=== PATIENT | male | born 1965 | race Two or more races ===

== ENCOUNTER 2021-08-14 17:42 | Emergency (ER) | payer MEDICAID ==
[~2021-08-14] VITALS: Ht 172.7 cm; Wt 68.2 kg
--- NOTE | 2021-08-14 18:26 | NUR ---
.The patient to bed 25 via EMS after he was placed on a 5150 hold [facility] for DTS and GD. The patient was seen by [facility] and placed on a 5150 hold. Covid test was positive. BARBARA Belcher and rn charge made aware.
[2021-08-14 18:34] LABS: BASOPHILS % (AUTO) 0.4 % (0-1); EOSINOPHILS # (AUTO) 0.1 X10'3 (0-0.9); EOSINOPHILS % (AUTO) 1.2 % (0-6); HEMATOCRIT 40.9 % (42.0-52.0); HEMOGLOBIN 14.1 g/dl (14.0-17.9); LYMPHOCYTES # (AUTO) 1.8 X10'3 (1.1-4.8); MEAN CORPUSCULAR HEMOGLOBIN 27.8 PG (27.0-31.0); MEAN CORPUSCULAR HGB CONC 34.3 g/dL (33.0-36.5); MEAN CORPUSCULAR VOLUME 80.8 FL (78-98); MEAN PLATELET VOLUME 9.8 FL (7.4-10.4); MONOCYTES # (AUTO) 0.6 X10'3 (0-0.9); MONOCYTES % (AUTO) 10.1 % (2-12); NEUTROPHILS # (AUTO) 3.8 X10'3 (1.8-7.7); NEUTROPHILS % (AUTO) 60.3 % (42-75); PLATELET COUNT 155 X10'3 (140-440); RED BLOOD COUNT 5.06 X10'6 (4.70-6.10); WHITE BLOOD COUNT 6.3 X10'3 (4.5-11.0)
[2021-08-14 18:45] LABS: ALANINE AMINOTRANSFERASE 21 U/L (12-78); ALBUMIN 3.4 G/DL (3.4-5.0); ALBUMIN/GLOBULIN RATIO 0.9 (1.1-1.5); ALKALINE PHOSPHATASE 72 IU/L (46-116); ANION GAP 10 (8-16); ASPARTATE AMINO TRANSFERASE 19 U/L (10-37); BILIRUBIN,TOTAL 0.5 MG/DL (0.1-1.0); BLOOD UREA NITROGEN 27 MG/DL (7-18); BUN/CREATININE RATIO 23.5 (5.4-32.0); CALCIUM 8.5 MG/DL (8.5-10.1); CHLORIDE 109 MMOL/L (99-107); CREATININE 1.15 MG/DL (0.60-1.10); GLUCOSE 103 MG/DL (70-104); POTASSIUM 3.6 MMOL/L (3.5-5.1); SODIUM 143 MMOL/L (135-145); TOTAL CARBON DIOXIDE 24.3 MMOL/L (24-32); TOTAL PROTEIN 7.3 G/DL (6.4-8.2); eGFR 66 ML/MIN
[2021-08-14 18:54] LABS: ETHANOL < 0.010 GM/DL (0.0-0.010)
[2021-08-14 18:55] LABS: CLARITY,URINE CLEAR (Clear); COLOR,URINE YELLOW (Yellow); GLUCOSE, URINE NEGATIVE (Neg); KETONES,URINE NEGATIVE (Neg); LEUKOCYTE ESTERASE ,URINE NEGATIVE (Neg); NITRITES, URINE NEGATIVE (Neg); OCCULT BLOOD,URINE TRACE-INTACT (Neg); PH,URINE 5.5 (4.8-8.0); PROTEIN,URINE TRACE mg/dl (Neg); UROBILINOGEN,URINE 0.2 E.U/dL (0.2-1.0)
[2021-08-14 19:01] LABS: URINE AMPHETAMINE SCREEN NEGATIVE (Neg); URINE BARBITUATE SCREEN NEGATIVE (Neg); URINE BENZODIAZEPINES SCREEN NEGATIVE (Neg); URINE CANNABINOID SCREEN NEGATIVE (Neg); URINE COCAINE SCREEN NEGATIVE (Neg); URINE METHADONE SCREEN NEGATIVE (Neg); URINE OPIATE SCREEN NEGATIVE (Neg); URINE PHENCYCLIDINE SCREEN NEGATIVE (Neg)
[2021-08-14 19:02] LABS: UA COLLECTION TYPE CLN CATCH MIDSTREAM
[2021-08-14 19:05] LABS: BACTERIA,URINE FEW /HPF (Neg); MUCUS STRANDS FEW /LPF (Neg); RBC,URINE 0-2 /HPF (0-2); SQUAMOUS EPITHELIAL CELL,UR FEW /LPF (FEW); WBC,URINE 0-4 /HPF (0-4)
--- NOTE | 2021-08-14 20:33 | NUR ---
Success A new connect request was successfully created for: ANEUDY PALACIO : 1965 ConnectID: [id number] REASON: Other Emergency ACUITY: Acuity Level 2 SUBMITTED: 08/14/2021 20:33 PDT
--- NOTE | 2021-08-14 20:52 | NUR ---
Neuro consult in process per MD order
--- NOTE | 2021-08-14 21:26 | NUR ---
never showed on tele consult. Tech will call again.
--- NOTE | 2021-08-14 21:31 | NUR ---
Consult company said they are waiting for a doctor to sign up for patient but that he is "in the queue"
--- NOTE | 2021-08-14 21:47 | NUR ---
Neuro consult concluded. [employer] services utilized
[2021-08-15] MEDS ORDERED: NO HOME MEDS (17:28)
--- NOTE | 2021-08-15 17:35 | NUR ---
5150 states the pt has 3 meds with him but the meds are with the pt belongs nor in the pharm. will attempt to call family to get med list since pt doesnt know what meds he takes
--- NOTE | 2021-08-15 17:42 | NUR ---
called family to ask about home meds. no answer
--- NOTE | 2021-08-16 00:30 | NUR ---
ASSUMED CARE OF PT. PT HAS NO COMPLAINTS AT THIS TIME AND IS ATTEMPTING TO SLEEP AGAIN AFTER HE WAS MOVED ROOMS.
--- NOTE | 2021-08-16 01:30 | NUR ---
REQUESTED TO HAVE SOMETHING TO EAT. PROVIDED WITH A SNACK AND JUICE.
--- NOTE | 2021-08-16 02:30 | NUR ---
SLEEPING ON HIS SIDE. EQUAL RISE AND FALL OF CHEST.
--- NOTE | 2021-08-16 03:30 | NUR ---
Mor mendez in ED - 08/16/21 at 0507 by [email or web address] PT SLEEPING. EQUAL RISE AND FALL OF CHEST.
--- NOTE | 2021-08-16 03:30 | NUR ---
PT SLEEPING COMFORTABLY. EQUAL RISE AND FALL OF CHEST.
--- NOTE | 2021-08-16 04:30 | NUR ---
PT SLEEPING COMFORTABLY. EQUAL RISE AND FALL OF CHEST.
--- NOTE | 2021-08-16 05:55 | NUR ---
SLEEPING ON BACK. EQUAL RISE AND FALL OF CHEST.
--- NOTE | 2021-08-16 06:30 | NUR ---
PT SLEEPING IN RGT LATERAL POSITION ,WILL CONT TO MONITOR.
--- NOTE | 2021-08-16 07:18 | NUR ---
STILL SLEEPING ,RR WNL ,WILL CONT TO MONITOR.
--- NOTE | 2021-08-16 08:30 | NUR ---
BREAKFAST FEED TO THE PT .COMPLETED 100% FOOD ON THE TRAY.WILL CONT TO MONITOR.
--- NOTE | 2021-08-16 09:34 | NUR ---
PT RESTING IN BED .NO DISTRESS NOTED ,WILL CONT TO MONITOR.
--- NOTE | 2021-08-16 10:07 | NUR ---
Pt resting in bed with eyes closed. No signs or symptoms of distress. Equal rise and fall of chest. Will continue to monitor.
--- NOTE | 2021-08-16 11:12 | NUR ---
Pt resting with eyes closed. Equal rise and fall of chest.
--- NOTE | 2021-08-16 12:20 | NUR ---
Pt is resting in bed with eyes closed. No signs or symptoms of distress noted. Equal rise and fall of chest noted. Will continue to monitor.
--- NOTE | 2021-08-16 13:12 | NUR ---
Pt in bed resting with eyes open. Pt states he has no needs at this time. No signs or symptoms of distress noted. Will continue to monitor.
--- NOTE | 2021-08-16 15:03 | NUR ---
Pt's sister Ivonne called and requested to speak with pt. Phone placed in pt's room and pt monitored from door until phone call finished. Pt is in bed resting. Pt states he has no needs at this time. No signs or symptoms of distress noted. Will continue to monitor.
--- NOTE | 2021-08-16 20:00 | NUR ---
Patient recieved at 1940 laying in bed resting.
--- NOTE | 2021-08-16 20:30 | NUR ---
Patient found laying in bed sleeping. Patient awakes to ask for more blankets and to use urinal. Patient denies needing assistance and returns to sleep.
--- NOTE | 2021-08-16 22:30 | NUR ---
Patient is resting quietly in room. No needs at this time
--- NOTE | 2021-08-17 01:00 | NUR ---
ASSUMED CARE OF PT. PT SLEEPING ON HIS SIDE. EQUAL RISE AND FALL OF CHEST.
--- NOTE | 2021-08-17 02:00 | NUR ---
PT SLEEPING COMFORTABLY. EQUAL RISE AND FALL OF CHEST.
--- NOTE | 2021-08-17 03:00 | NUR ---
PT SLEEPING ON HIS SIDE. EQUAL RISE AND FALL OF CHEST.
--- NOTE | 2021-08-17 04:00 | NUR ---
PT SLEEPING COMFORTABLY. EQUAL RISE AND FALL OF CHEST
--- NOTE | 2021-08-17 05:00 | NUR ---
PT SLEEPING ON HIS SIDE. EQUAL RISE AND FALL OF CHEST.
--- NOTE | 2021-08-17 06:07 | NUR ---
PT HAD VITALS TAKEN. PT RESTING ON HIS SIDE.
--- NOTE | 2021-08-17 13:12 | NUR ---
PT REQUESTING A BEDSIDE CAMODE AND WAS GIVEN ONE FOR TOILETING
--- NOTE | 2021-08-17 18:49 | NUR ---
ASSUMED CARE OF PT. PT LYING IN BED WATCHING STAFF WALKING THE HALLS. HE DENIES ANY NEEDS AT THIS TIME.
--- NOTE | 2021-08-17 20:00 | NUR ---
PT USED BEDSIDE COMMODE. HE ALSO REQUESTED TO HAVE THE HEAD OF HIS BED LOWERED DOWN. HE ALREADY ATE DINNER.
--- NOTE | 2021-08-17 20:28 | NUR ---
Mor mendez in EDM - 08/17/21 at 2028 by [email or web address] PT PROVIDED URINE SAMPLE. COVID SWAB RESULTS ARE IN. REPEAT ELECTROLYTE LABS HAVE BEEN DRAWN.
--- NOTE | 2021-08-17 21:00 | NUR ---
PT LYING ON HIS SIDE. WATCHING STAFF WALK THE [place].
--- NOTE | 2021-08-17 22:00 | NUR ---
PT ATTEMPTING TO SLEEP. TURNED LIGHTS OFF FOR PT'S COMFORT.
--- NOTE | 2021-08-17 23:00 | NUR ---
PT SLEEPING ON HIS SIDE. EQUAL RISE AND FALL OF CHEST.
--- NOTE | 2021-08-18 | NUR ---
PT SLEEPING ON HIS BACK. EQUAL RISE AND FALL OF CHEST.
--- NOTE | 2021-08-18 01:00 | NUR ---
PT AWAKE. HE DENIES ANY NEEDS.
--- NOTE | 2021-08-18 02:00 | NUR ---
PT SLEEPING ON HIS SIDE. EQUAL RISE AND FALL OF CHEST.
--- NOTE | 2021-08-18 03:00 | NUR ---
PT SLEEPING ON HIS SIDE. EQUAL RISE AND FALL OF CHEST.
--- NOTE | 2021-08-18 04:00 | NUR ---
PT SLEEPING ON HIS BACK. EQUAL RISE AND FALL OF CHEST.
--- NOTE | 2021-08-18 05:00 | NUR ---
PT SLEEPING ON HIS SIDE. EQUAL RISE AND FALL OF CHEST.
--- NOTE | 2021-08-18 06:12 | NUR ---
PT SLEEPING ON HIS SIDE. VITALS TAKEN/.
--- NOTE | 2021-08-18 11:45 | NUR ---
[facility] called and requested covid test to determine if patient has turned negative. informatics specialist swab obtained and sent to lab.
--- NOTE | 2021-08-18 12:45 | NUR ---
TODAY'S COVID TEST CAME BACK POSITIVE. [facility] WILL BE NOTIFIED.
[2021-08-20 06:05] VITALS: BP 135/84
--- NOTE | 2021-08-20 08:30 | NUR ---
TOLERATED REGULAR DIET WELL AND RETAINED. RESTING ON [place].
--- NOTE | 2021-08-20 14:11 | NUR ---
PATIENT RE-EVALUATED PER [facility] AND PATIENT WILL BE RELEASED TO FAMILY THIS EVENING. RESTING IN BED. TOLERATED LUNCH WELL AND RETAINED.
== END 2021-08-20 18:15 | disposition home or self-care (01) ==
LOC: ER 17:44
DX: U07.1 COVID-19 (principal); F91.9 Conduct disorder, unspecified; R41.82 Altered mental status, unspecified; Z86.73 Personal history of transient ischemic attack (TIA), and cerebral infarction without residual deficits
CPT/HCPCS: 36415; 70450; 71045; 80053; 80305; 80320; 81001; 84443; 85025; 87811; 99285

== ENCOUNTER 2022-01-23 12:49 | Day surgery (SDC) | payer MEDICAID ==
[~2022-01-23] VITALS: Ht 175.3 cm; Wt 59.1 kg
[~2022-01-23 12:49] MED LIST: NO HOME MEDS
[2022-01-23 13:05] VITALS: BP 159/87
[2022-01-23] MEDS ORDERED: MIDAZolam 1 MG/ML 5ML VIAL ONE (13:14)
[2022-01-23] MEDS ORDERED: FENTANYL CITRATE/PF 50 MCG/1 ML VIAL ONE (13:14)
[2022-01-23] MEDS ORDERED: AMLO2.5T2 PO (13:54)
[2022-01-23] MEDS ORDERED: RISP2TAB85 PO (13:55)
[2022-01-23] MEDS ORDERED: DOCU-148 PO (13:56)
[2022-01-23] MEDS ORDERED: LISI40TA13 PO (13:57)
[2022-01-23 15:19] VITALS: BP 130/83
[2022-01-23 15:29] VITALS: BP 128/85
[2022-01-23 15:39] VITALS: BP 128/76
[2022-01-23 15:49] VITALS: BP 139/84
== END 2022-01-23 15:50 | disposition home or self-care (01) ==
LOC: GI LAB 12:49
PROVIDERS: ATTEND Internal Medicine Gastroenterology
DX: K62.5 Hemorrhage of anus and rectum (principal); D12.0 Benign neoplasm of cecum; D12.5 Benign neoplasm of sigmoid colon
CPT/HCPCS: 45385; 99152; 99153; J2250; J3010; J7030; Z7512; A4620; C1889

== ENCOUNTER 2022-08-31 12:19 | Emergency (ER) | payer MEDICAID ==
[~2022-08-31] VITALS: Ht 175.3 cm; Wt 59.0 kg
[~2022-08-31 12:19] MED LIST changes: +AMLO2.5T2 PO; +DOCU-148 PO; +LISI40TA13 PO; -NO HOME MEDS; +RISP2TAB85 PO
[2022-08-31 12:57] VITALS: BP 100/54
[2022-08-31 15:27] LABS: BASOPHILS % (AUTO) 0.4 % (0-1); EOSINOPHILS # (AUTO) 0.1 X10'3 (0-0.9); EOSINOPHILS % (AUTO) 0.8 % (0-6); HEMATOCRIT 37.1 % (42.0-52.0); HEMOGLOBIN 12.7 g/dl (14.0-17.9); LYMPHOCYTES # (AUTO) 2.2 X10'3 (1.1-4.8); LYMPHOCYTES % (AUTO) 24.1 % (21-51); MEAN CORPUSCULAR HEMOGLOBIN 28.5 PG (27.0-31.0); MEAN CORPUSCULAR HGB CONC 34.1 g/dL (33.0-36.5); MEAN CORPUSCULAR VOLUME 83.4 FL (78-98); MEAN PLATELET VOLUME 8.7 FL (7.4-10.4); MONOCYTES # (AUTO) 0.6 X10'3 (0-0.9); NEUTROPHILS # (AUTO) 6.1 X10'3 (1.8-7.7); NEUTROPHILS % (AUTO) 67.7 % (42-75); PLATELET COUNT 202 X10'3 (140-440); RED BLOOD COUNT 4.45 X10'6 (4.70-6.10)
[2022-08-31 15:38] LABS: ALANINE AMINOTRANSFERASE 22 U/L (12-78); ALBUMIN/GLOBULIN RATIO 0.8 (1.1-1.5); ALKALINE PHOSPHATASE 69 IU/L (46-116); ANION GAP 9 (8-16); ASPARTATE AMINO TRANSFERASE 23 U/L (10-37); BILIRUBIN,TOTAL 0.4 MG/DL (0.1-1.0); BLOOD UREA NITROGEN 16 MG/DL (7-18); BUN/CREATININE RATIO 17.8 (10.0-20.0); CALCIUM 8.9 MG/DL (8.5-10.1); CHLORIDE 107 MMOL/L (99-107); GLUCOSE 99 MG/DL (70-104); POTASSIUM 3.9 MMOL/L (3.5-5.1); SODIUM 143 MMOL/L (135-145); TOTAL CARBON DIOXIDE 26.6 MMOL/L (24-32); TOTAL PROTEIN 6.8 G/DL (6.4-8.2); eGFR 87 ML/MIN
[2022-08-31 15:53] LABS: CLARITY,URINE SLIGHTLY CLOUDY (Clear); COLOR,URINE YELLOW (Yellow); GLUCOSE, URINE NEGATIVE (Neg); KETONES,URINE 15 mg/dl (Neg); LEUKOCYTE ESTERASE ,URINE NEGATIVE (Neg); NITRITES, URINE NEGATIVE (Neg); OCCULT BLOOD,URINE NEGATIVE (Neg); PROTEIN,URINE 30 mg/dl (Neg)
[2022-08-31 15:54] LABS: UA COLLECTION TYPE CLN CATCH MIDSTREAM
--- NOTE | 2022-08-31 15:56 | NUR ---
akanksha chaperoned brooks with procedure
[2022-08-31 16:01] LABS: MUCUS STRANDS MANY /LPF (Neg); SQUAMOUS EPITHELIAL CELL,UR FEW /LPF (FEW)
[2022-08-31 16:03] LABS: BACTERIA,URINE FEW /HPF (Neg); CAL OXALATE CRYSTALS 1+ /HPF (NEGATIVE); RBC,URINE 0-2 /HPF (0-2); WBC,URINE 0-4 /HPF (0-4)
[2022-08-31] MEDS ORDERED: PSYL575P22 PO (16:08)
== END 2022-08-31 17:00 | disposition home or self-care (01) ==
LOC: ER 12:20
DX: K59.00 Constipation, unspecified (principal); E78.00 Pure hypercholesterolemia, unspecified; I10 Essential (primary) hypertension; F41.9 Anxiety disorder, unspecified; Z79.899 Other long term (current) drug therapy
CPT/HCPCS: 36415; 71045; 74018; 80053; 81001; 84484; 85025; 93005; 99284; 99285

== ENCOUNTER 2024-08-05 15:55 | Outpatient (CLI) | payer MEDICARE, MEDICAID ==
[~2024-08-05 15:55] MED LIST changes: +PSYL575P22 PO; +RISP-32 PO; -RISP2TAB85 PO
--- NOTE | 2024-08-05 16:43 | RADIOLOGY REPORT ---
Procedure: CT [facility] Study Date and Requested Time: 08/05/2024 04:05 PM History: GAIT DISTURBANCE Comparison: CT HEAD on DOS: 08/14/21 Dose: CTDI: 55.42 mGy DLP: 1017.99 mGycm Technique: Multiplanar images obtained through the brain without intravenous contrast. Findings: Redemonstration of left parietal lobe approach ventriculoperitoneal shunt catheter terminating over t he anterior left lateral ventricle relatively unchanged size of the ventricles. There is unchanged from 2021 minimal bilateral supratentorial hemispheric extra-axial fluid collectio n measuring up to 3 mm with associated extra-axial left hemispheric calcification There is right basal ganglia chronic lacunar infarcts/ oralia prominent perivascular space. Unchanged a symmetric left basal ganglia hypodensity Mild chronic small-vessel ischemic changes. The pituitary gland, sella and parasellar regions are unremarkable. The cerebellar tonsils are in nor mal position. The cerebellum is unremarkable. Unchanged mild prominence of the dural venous sinuses. The orbits and globes are unremarkable. Mild polypoid mucoperiosteal thickening of the maxillary sinu ses. Otherwise, the paranasal sinuses and mastoids are clear. Convexity dural calcifications are not ed. There are no worrisome calvarial lesions. Impression: No evidence of acute intracranial abnormality. Unchanged chronic findings as above including minimal extra-axial fluid collection and slight promine nce of the dural venous sinuses which may be seen with intracranial hypotension in the right clinical setting. Mild polypoid mucoperiosteal thickening of the maxillary sinuses.
== END 2024-08-05 23:59 | disposition home or self-care (01) ==
LOC: RAD 15:55
PROVIDERS: ATTEND Neuromusculoskeletal Medicine & OMM
DX: I63.81 Other cerebral infarction due to occlusion or stenosis of small artery (principal); R26.9 Unspecified abnormalities of gait and mobility; J32.0 Chronic maxillary sinusitis
CPT/HCPCS: 70450